=== PATIENT | female | born 1960 | race Caucasian/White ===

== ENCOUNTER 2022-04-12 12:09 | Outpatient (REF) | payer OTHER, SELFPAY ==
[2022-04-12 12:18] VITALS: BP 152/73; PULSE 94; RESP 16; TEMP 36.3; O2SAT 97
[2022-04-12 12:19] VITALS: BMI 27.8
== END 2022-04-12 12:10 | disposition home or self-care (01) ==
LOC: HO.MS 12:09
PROVIDERS: PCP Family Medicine; Visit Provider Ophthalmology
PROC: (CPT 67700; principal; 2022-04-12 14:00)
DX: H00.12 Chalazion right lower eyelid (principal); Z53.8 Procedure and treatment not carried out for other reasons; Z96.1 Presence of intraocular lens; E11.9 Type 2 diabetes mellitus without complications; E03.9 Hypothyroidism, unspecified; Z79.84 Long term (current) use of oral hypoglycemic drugs; Z79.899 Other long term (current) drug therapy; Z87.891 Personal history of nicotine dependence
CPT/HCPCS: 67700